=== PATIENT | female | born 1985 | race Caucasian/White ===

== ENCOUNTER 2021-08-20 12:38 | Outpatient (REF) | payer OTHER, SELFPAY ==
--- NOTE | ~2021-08-20 | XR_ITS ---
EXAMINATION: XR FOOT, LEFT CLINICAL INFORMATION: Confusion. COMPARISON: None TECHNIQUE: AP, lateral, and oblique views of the left foot. FINDINGS: There is no visible acute fracture, dislocation subluxation. There is mild dorsal midfoot soft tissue swelling. Alignment is anatomic. Joint spaces are maintained. A small retrocalcaneal enthesophyte. XR/XR foot LT min 3V IMPRESSION: Small retrocalcaneal enthesophyte. Otherwise rest of the left foot exam is unremarkable.
== END 2021-08-20 12:39 | disposition home or self-care (01) ==
LOC: HO.HMGCX 12:38
PROVIDERS: PCP Internal Medicine; Visit Provider Internal Medicine
DX: S90.30XA Contusion of unspecified foot, initial encounter (principal); X58.XXXA Exposure to other specified factors, initial encounter; Y93.9 Activity, unspecified; Y92.9 Unspecified place or not applicable; Y99.9 Unspecified external cause status
CPT/HCPCS: 73630

== ENCOUNTER 2022-01-17 10:18 | Outpatient (REF) | payer OTHER, SELFPAY ==
[2022-01-17 11:23] LABS: MANUAL DIFF FLAG NO
[2022-01-17 11:52] LABS: Alanine Aminotransferase 19 U/L (0-31); Albumin Level 3.7 g/dL (3.5-5.0); Alkaline Phosphatase 87 U/L (39-117); Anion Gap 13 (12-20); Aspartate Amino Transferase 15 U/L (5-31); Bilirubin Total 0.6 mg/dL (0.0-1.0); Blood Urea Nitrogen 11 mg/dL (9-16); Calcium 9.2 mg/dL (8.4-10.2); Carbon Dioxide 22 mmol/L (22-29); Chloride 106 mmol/L (96-108); Cholesterol 160 mg/dL; Estimated Glomerular Filt Rate > 60; Glucose Fasting 112 mg/dL (60-99); HDL Cholesterol 49 mg/dL; LDL Cholesterol Calculated 95 mg/dl; Potassium 4.3 mmol/L (3.3-5.1); Sodium 137 mmol/L (135-145); Triglycerides 82 mg/dL
[2022-01-17 11:54] LABS: Basophils Absolute Auto 0.1 X10*3/uL (0.0-0.2); Eosinophils Absolute Auto 0.1 X10*3/uL (0.0-0.4); Eosinophils Percent Auto 1.5 % (0-4); Hematocrit 34.4 % (37.0-47.0); Hemoglobin 10.2 g/dl (12.0-16.0); Imm Gran Abs Auto 0.02 X10*3/uL (0.00-0.03); Imm Gran Pct Auto 0.3 % (0.0-0.4); Lymphocytes Absolute Auto 2.1 X10*3/uL (1.2-4.9); Lymphocytes Percent Auto 28.8 % (20-40); Mean Corpuscular HGB Conc 29.7 g/dl (31.0-35.0); Mean Corpuscular Hemoglobin 22.3 pg (27.0-33.0); Mean Corpuscular Volume 75.1 fL (80.0-98.0); Mean Platelet Volume 11.5 fL (9.4-12.3); Monocytes Absolute Auto 0.5 X10*3/uL (0.1-1.2); Monocytes Percent Auto 7.2 % (2-11); Neutrophils Absolute Auto 4.4 x10*3/uL (2.0-8.3); Neutrophils Percent Auto 61.2 % (45-73); Platelet Count 383 X10*3/uL (160-400); Red Blood Count 4.58 X10*6/uL (4.20-5.50); Red Cell Distribution Width 16.9 % (11.0-16.0); White Blood Count 7.1 X10*3/uL (4.8-10.8)
[2022-01-17 12:14] LABS: TSH reflex Free T4 4.02 uIU/mL (0.32-4.0)
[2022-01-17 13:08] LABS: Free T4 (Free Thyroxine) 1.01 ng/dL (0.71-1.85)
== END 2022-01-17 10:19 | disposition home or self-care (01) ==
LOC: HO.HMGCLDS 10:18
PROVIDERS: Visit Provider Internal Medicine
DX: Z00.01 Encounter for general adult medical examination with abnormal findings (principal); E66.01 Morbid (severe) obesity due to excess calories; F99 Mental disorder, not otherwise specified; G25.2 Other specified forms of tremor; K21.9 Gastro-esophageal reflux disease without esophagitis; R00.0 Tachycardia, unspecified
CPT/HCPCS: 36415; 80053; 80061; 84439; 84443; 85025

== ENCOUNTER 2022-01-21 12:53 | Outpatient (REF) | payer OTHER, SELFPAY ==
[2022-01-21 13:45] LABS: MANUAL DIFF FLAG NO
[2022-01-21 13:54] LABS: Basophils Absolute Auto 0.1 X10*3/uL (0.0-0.2); Basophils Percent Auto 0.8 % (0-2); Eosinophils Absolute Auto 0.1 X10*3/uL (0.0-0.4); Eosinophils Percent Auto 1.4 % (0-4); Hematocrit 35.4 % (37.0-47.0); Hemoglobin 10.5 g/dl (12.0-16.0); Imm Gran Abs Auto 0.02 X10*3/uL (0.00-0.03); Imm Gran Pct Auto 0.3 % (0.0-0.4); Lymphocytes Absolute Auto 1.9 X10*3/uL (1.2-4.9); Lymphocytes Percent Auto 26.4 % (20-40); Mean Corpuscular HGB Conc 29.7 g/dl (31.0-35.0); Mean Corpuscular Hemoglobin 22.2 pg (27.0-33.0); Monocytes Absolute Auto 0.5 X10*3/uL (0.1-1.2); Monocytes Percent Auto 7.2 % (2-11); Neutrophils Absolute Auto 4.6 x10*3/uL (2.0-8.3); Neutrophils Percent Auto 63.9 % (45-73); Platelet Count 388 X10*3/uL (160-400); Red Blood Count 4.72 X10*6/uL (4.20-5.50); Red Cell Distribution Width 16.8 % (11.0-16.0); White Blood Count 7.2 X10*3/uL (4.8-10.8)
[2022-01-21 14:25] LABS: Ferritin 13 ng/mL (10-122)
[2022-01-21 14:41] LABS: Vitamin B12 332 pg/mL (200-900)
== END 2022-01-21 12:54 | disposition home or self-care (01) ==
LOC: HO.HMGCLDS 12:53
PROVIDERS: PCP Internal Medicine; Visit Provider Internal Medicine
DX: D64.9 Anemia, unspecified (principal)
CPT/HCPCS: 36415; 82607; 82728; 85025

== ENCOUNTER 2022-08-22 10:42 | Outpatient (REF) | payer OTHER, SELFPAY ==
[2022-08-22 11:34] LABS: Hematocrit 36.2 % (37.0-47.0); Hemoglobin 10.6 g/dl (12.0-16.0)
[2022-08-22 11:44] LABS: Estimated Average Glucose 103 mg/dL; Hemoglobin A1c % 5.2 %
== END 2022-08-22 10:43 | disposition home or self-care (01) ==
LOC: HO.HMGCLDS 10:42
PROVIDERS: PCP Internal Medicine; Visit Provider Internal Medicine
DX: R79.89 Other specified abnormal findings of blood chemistry (principal); K21.9 Gastro-esophageal reflux disease without esophagitis; E66.01 Morbid (severe) obesity due to excess calories; F99 Mental disorder, not otherwise specified; D64.9 Anemia, unspecified; R73.01 Impaired fasting glucose
CPT/HCPCS: 36415; 83036; 84443; 85014; 85018

== ENCOUNTER 2022-10-24 08:57 | Outpatient (REF) | payer OTHER, SELFPAY ==
[2022-10-24 11:18] LABS: MANUAL DIFF FLAG NO
[2022-10-24 11:43] LABS: Basophils Absolute Auto 0.1 X10*3/uL (0.0-0.2); Basophils Percent Auto 1.2 % (0-2); Eosinophils Absolute Auto 0.1 X10*3/uL (0.0-0.4); Eosinophils Percent Auto 1.6 % (0-4); Hematocrit 33.4 % (37.0-47.0); Hemoglobin 9.5 g/dl (12.0-16.0); Imm Gran Abs Auto 0.01 X10*3/uL (0.00-0.03); Imm Gran Pct Auto 0.2 % (0.0-0.4); Lymphocytes Absolute Auto 2.6 X10*3/uL (1.2-4.9); Lymphocytes Percent Auto 44.9 % (20-40); Mean Corpuscular HGB Conc 28.4 g/dl (31.0-35.0); Mean Corpuscular Hemoglobin 21.2 pg (27.0-33.0); Mean Corpuscular Volume 74.6 fL (80.0-98.0); Monocytes Absolute Auto 0.5 X10*3/uL (0.1-1.2); Monocytes Percent Auto 7.8 % (2-11); Neutrophils Absolute Auto 2.5 x10*3/uL (2.0-8.3); Neutrophils Percent Auto 44.3 % (45-73); Platelet Count 387 X10*3/uL (160-400); Red Blood Count 4.48 X10*6/uL (4.20-5.50); White Blood Count 5.7 X10*3/uL (4.8-10.8)
[2022-10-24 12:05] LABS: Estimated Average Glucose 94 mg/dL; Hemoglobin A1c % 4.9 %
[2022-10-24 12:20] LABS: Alanine Aminotransferase 14 U/L (0-31); Albumin Level 3.5 g/dL (3.5-5.0); Alkaline Phosphatase 73 U/L (39-117); Anion Gap 11 (12-20); Aspartate Amino Transferase 13 U/L (5-31); Bilirubin Total 0.4 mg/dL (0.0-1.0); Blood Urea Nitrogen 9 mg/dL (9-16); Calcium 8.7 mg/dL (8.4-10.2); Carbon Dioxide 25 mmol/L (22-29); Chloride 106 mmol/L (96-108); Cholesterol 152 mg/dL; Estimated Glomerular Filt Rate > 60; Glucose Fasting 118 mg/dL (60-99); HDL Cholesterol 49 mg/dL; Iron 26 mcg/dL (30-160); LDL Cholesterol Calculated 87 mg/dl; Percent Iron Saturation 7 % (15-50); Potassium 4.1 mmol/L (3.3-5.1); Sodium 138 mmol/L (135-145); Total Iron Binding Capacity 359 mcg/dL (228-428); Total Protein 6.2 g/dL (6.5-8.0); Triglycerides 83 mg/dL; Unsaturated Iron Binding 333 ug/dL
[2022-10-24 12:28] LABS: Ferritin 6 ng/mL (10-122); TSH reflex Free T4 4.21 uIU/mL (0.32-4.0); Vitamin B12 422 pg/mL (200-900)
[2022-10-24 13:26] LABS: Free T4 (Free Thyroxine) 0.87 ng/dL (0.71-1.85)
[2022-10-28 16:24] LABS: Vitamin D 25-OH, D2 <4 ng/mL; Vitamin D 25-OH, D3 20 ng/mL; Vitamin D 25-OH, Total 20 ng/mL (30-100)
== END 2022-10-24 08:58 | disposition home or self-care (01) ==
LOC: HO.HMGCLDS 08:57
PROVIDERS: PCP Internal Medicine; Visit Provider Internal Medicine
DX: Z00.01 Encounter for general adult medical examination with abnormal findings (principal); D64.9 Anemia, unspecified; E66.01 Morbid (severe) obesity due to excess calories; F99 Mental disorder, not otherwise specified; G25.2 Other specified forms of tremor; K21.9 Gastro-esophageal reflux disease without esophagitis; R73.01 Impaired fasting glucose; R79.89 Other specified abnormal findings of blood chemistry; Z91.09 Other allergy status, other than to drugs and biological substances
CPT/HCPCS: 36415; 80053; 80061; 82306; 82607; 82728; 83036; 83540; 84439; 84443; 85025

== ENCOUNTER → 2022-11-09 14:11 | Outpatient (BNV) | payer OTHER, SELFPAY | PROVIDERS: PCP Internal Medicine; Visit Provider Internal Medicine | DX: D64.9 Anemia, unspecified (principal) | CPT/HCPCS: 99204; 99213 ==

== ENCOUNTER 2023-04-03 09:49 | Outpatient (REF) | payer OTHER, SELFPAY | END 2023-04-03 09:50 | disposition home or self-care (01) | LOC: HO.10HDL 09:49 | PROVIDERS: Visit Provider Internal Medicine | DX: Z13.89 Encounter for screening for other disorder (principal) | CPT/HCPCS: 36415 ==

== ENCOUNTER 2023-09-25 10:15 | Outpatient (REF) | payer OTHER, SELFPAY | END 2023-09-25 10:16 | disposition home or self-care (01) | LOC: HO.HMGCLDS 10:15 | PROVIDERS: PCP Internal Medicine; Visit Provider Internal Medicine | DX: D64.9 Anemia, unspecified (principal) | CPT/HCPCS: 36415; 85014; 85018 ==

== ENCOUNTER 2024-04-17 12:33 | Outpatient (AMB) | payer OTHER, SELFPAY ==
[2024-04-17 12:37] VITALS: BP 122/84; PULSE 102; O2SAT 97; BMI 43.9
--- NOTE | 2024-04-17 12:37 | A.OFFPC_ITS ---
Vital Signs 04/17/24 12:37 Height 5 ft 7 in Weight 280 lb 4 oz BMI 43.9 BP 122/84 Blood Pressure Location Rt brachial Position Sitting Pulse 102 H Pulse Source Pulse Oximeter Pulse Oximetry (%) 97 Oxygen Delivery Method Room Air Intake Visit Reasons: annual visit Allergies pollen extracts [POLLEN] Allergy (Unknown, Verified 04/17/24 12:39) UNKNOWN Benadryl Adverse Reaction (Unknown, Uncoded 12/11/23 11:41) sensitivity ROSES Adverse Reaction (Unknown, Uncoded 12/11/23 11:41) UNKNOWN Medication List - Last Reviewed 04/17/24 by Catracho Hubbard MA bupropion HCl XL 300 mg PO BEDTIME ferrous sulfate 325 mg PO DAILY fluoxetine 60 mg PO QAM levothyroxine 25 mcg PO DAILY 90 days loratadine 10 mg PO DAILY 90 days omeprazole 40 mg PO DAILY 90 days prazosin 5 mg PO BEDTIME Tobacco use date assessed: 04/17/24 Dental Screening Dental Screen Date: 04/17/24 Did you have a dental visit in the last 12 months?: Yes Did you have a dental problem in the last 6 months where you did not have access to dental care?: No Was dental information given to patient?: Patient has dentist HPI annual visit HPI Details Patient is 38-year-old female came in today for annual physical examination Declined to have Pap smear or to see OBGYN Declined breast exam today Patient is seeing psychiatrist , psychiatric medications through them Chronic GERD stable with omeprazole Patient also have chronic anemia but stable, due for labs Patient is also taking loratadine for chronic allergies Patient is prediabetic we are monitoring hemoglobin A1c Chronic tachycardia and fine tremor of hand ? Labs to be done today Follow-up 1 year physical exam [facility] Surgical History [place] teeth extracted Family History Other Mental health disorder Social History Household Members: None Housing: Apartment Patient Tobacco Use Status: Never used Tobacco e-Cigarette/Vaping Use: Never Used Second Hand Smoke Exposure: No service: No Current occupational status: unemployed Cognitive needs: No Hearing needs: No Vision needs: Yes Questionnaire PHQ-9 Over the last 2 weeks, how often have you been bothered by any of the following problems? 1. Little interest or pleasure in doing things: not at all 2. Feeling down, depressed, or hopeless: not at all 3. Trouble falling or staying asleep, or sleeping too much: several days 4. Feeling tired or having little energy: several days 5. Poor appetite or overeating: not at all 6. Feeling bad about yourself - or that you are a failure or have let yourself or your family down: not at all 7. Trouble concentrating on things, such as reading the newspaper or watching television: not at all 8. Moving or speaking so slowly that other people could have noticed. Or the opposite - being so fidgety or restless that you have been moving around a lot more than usual: not at all 9. Thoughts that you would be better off or of hurting yourself in some way: not at all Total score: 2 Depression Screening Interpretation: Negative Depression Screening Done: Yes 12847 - PHQ-9 Billing: Yes Source: Developed by Drs. Obed Saeed, Sonya Moore, Barrera Schwarz and colleagues, with an educational bronson from [employer]. Thrive Questionnaire Date Thrive assessed: 04/17/24 I am a: Parent/Caregiver What is your living situation today?: I have a steady place to live Within the past 12 months, did the food you bought not last and you didn't have the money to get more?: Never true Within the past 12 months, did you worry whether your food would run out before you got money to buy more?: I choose not to answer this question Do you have trouble paying for medicines?: I choose not to answer this question Do you have trouble getting transportation to medical appointments?: I choose not to answer this question Do you have trouble paying your heating and electricity bill?: I choose not to answer this question Do you have trouble taking care of your child, family member or friend?: I choose not to answer this question Do you have trouble with day-to-day activities such as bathing, preparing meals, shopping, managing finances, etc.?: No Are you currently unemployed and looking for a job?: No Are you interested in more education?: No Please select the resources that you would like help with: Housing/Care Home Currently or been in a relationship where the following occur: I choose not to answer THRIVE Score: 0 AUDIT C Alcohol Use Questionnaire (AUDIT-C) 1. How often do you have a drink containing alcohol?: Never 3. How often do you have six or more drinks on one occasion?: Never Total Score: 0 Score Reviewed/Action Taken: Yes MARII-7 AMB Questionnaire MARII-7 Date MARII - 7 assessed: 04/17/24 Feeling nervous, anxious, or on edge: 0 = Not at all Not being able to stop or control worryin = Not at all Worrying too much about different things: 0 = Not at all Trouble relaxin = Not at all Being so restless that it is hard to sit still: 0 = Not at all Becoming easily annoyed or irritable: 0 = Not at all Feeling afraid as if something awful might happen: 0 = Not at all Total MARII-7 score (0-4 normal; 5-9 mild; 10-14 moderate; 15-21 severe): 0 Source: Developed by Drs. Obed Saeed, Sonya Moore, Barrera Schwarz and colleagues, with an educational bronson from [employer]. MARII-7 Assessment Billing MARII-7 Assessment Tool: MARII-7 Assessment 47089 Review of Systems Const Denies chills, Denies fever(s) and Denies headache(s) Eyes Denies blurry vision ENT Denies headache(s), Denies nasal discharge, Denies nasal obstruction, Denies odynophagia and Denies sinus pain Card Denies chest pain at rest and Denies chest pain with activity Resp Denies cough and Denies hemoptysis GI Denies diarrhea, Denies odynophagia, Denies vomiting and Denies hematemesis Reports as per HPI Musc Denies abnormal gait Skin/Breast Reports as per HPI Neuro Denies Abnormal speech present, Denies abnormal gait, Denies headache(s) and Denies Sensory deficit (Neuro) Endo Reports as per HPI Raul/Lymph Reports as per HPI Aller/Immun Reports as per HPI Physical exam (Primary Care) Vital Signs: Last Vital Signs Pulse 102 H 04/17/24 12:37 BP 122/84 04/17/24 12:37 Pulse Ox 97 04/17/24 12:37 Oxygen Delivery Method Room Air 04/17/24 12:37 BMI result Body Mass Index 43.9 Tobacco/Smoking Status: Tobacco use Status Tobacco use date assessed 04/17/24 04/17/24 12:40 Patient Tobacco Use Status Never used Tobacco 04/17/24 12:40 e-Cigarette/Vaping Use Never Used 04/17/24 12:40 PHQ-9: PHQ-9 Score PHQ-9: Total score 2 04/17/24 12:40 Depression Screening Interpretation: Negative Thrive Assessment: Date of Thrive Assessment Date Thrive assessed 04/17/24 04/17/24 12:40 Currently or been in a relationship where the following occur: I choose not to answer Const General: cooperative, comfortable and no acute distress Orientation/consciousness: patient oriented x3 HENMT Head: Yes normocephalic and Yes atraumatic Eyes General: appearance normal, both eyes and all related structures Pupils: Equal, round and reactive pupils present EOM: EOMs intact bilaterally Neck Neck: Yes supple and No lymphadenopathy Thyroid: Thyroid normal Lymphatic: no lymphadenopathy noted Resp Effort & Inspection: normal respiratory effort and able to speak in complete sentences Auscultation: clear to auscultation bilaterally Cardio Heart sounds: S1 normal heart sound present and S2 normal heart sound present GI Palpation (GI): Soft to palpation and nontender Auscultation: normal bowel sounds General: Yes no CVA tenderness Back/Spine/Pelvis Back: no CVA tenderness Skin General skin exam: elasticity normal and turgor normal Neuro General: patient oriented x3 and gait normal Cranial nerves: Yes Equal, round and reactive pupils present Speech: No Abnormal speech present Sensory Exam: No Sensory deficit (Neuro) Extrem General: Yes normal exam except as noted and No edema Assessment and Plan Assessment & Plan (1) Encounter for general adult medical examination with abnormal findings: Code(s): Z00.01 - Encounter for general adult medical examination with abnormal findings (2) Morbid obesity due to excess calories: Code(s): E66.01 - Morbid (severe) obesity due to excess calories (3) Chronic GERD: Code(s): K21.9 - Gastro-esophageal reflux disease without esophagitis (4) Psychiatric illness: Code(s): F99 - Mental disorder, not otherwise specified (5) Anemia: Code(s): D64.9 - Anemia, unspecified Qualifiers: Anemia type: other cause Other causes of anemia: chronic disease, other Qualified Code(s): D63.8 - Anemia in other chronic diseases classified elsewhere (6) Impaired fasting blood sugar: Code(s): R73.01 - Impaired fasting glucose (7) Elevated TSH: Code(s): R79.89 - Other specified abnormal findings of blood chemistry (8) Fine tremor: Code(s): G25.2 - Other specified forms of tremor (9) Environmental allergies: Code(s): Z91.09 - Other allergy status, other than to drugs and biological substances (10) Papanicolaou smear declined: Code(s): Z53.20 - Procedure and treatment not carried out because of patient's decision for unspecified reasons Plan Patient is 38-year-old female came in today for annual physical examination Declined to have Pap smear or to see OBGYN Declined breast exam today Patient is seeing psychiatrist , psychiatric medications through them Chronic GERD stable with omeprazole Patient also have chronic anemia but stable, due for labs Patient is also taking loratadine for chronic allergies Patient is prediabetic we are monitoring hemoglobin A1c Chronic tachycardia and fine tremor of hand ? Labs to be done today Follow-up 1 year physical exam Orders: Orders Complete Blood Count Auto Diff Today D64.9 - Anemia, unspecified, E66.01 - Morbid (severe) obesity due to excess calories, F99 - Mental disorder, not otherwise specified, K21.9 - Gastro-esophageal reflux disease without esophagitis, R73.01 - Impaired fasting glucose, R79.89 - Other specified abnormal findings of blood chemistry, Z00.01 - Encounter for general adult medical examination with abnormal findings Comprehensive Met. Panel Today D64.9 - Anemia, unspecified, E66.01 - Morbid (severe) obesity due to excess calories, F99 - Mental disorder, not otherwise specified, K21.9 - Gastro-esophageal reflux disease without esophagitis, R73.01 - Impaired fasting glucose, R79.89 - Other specified abnormal findings of blood chemistry, Z00.01 - Encounter for general adult medical examination with abnormal findings LDL Cholesterol Direct Today D64.9 - Anemia, unspecified, E66.01 - Morbid (severe) obesity due to excess calories, F99 - Mental disorder, not otherwise specified, K21.9 - Gastro-esophageal reflux disease without esophagitis, R73.01 - Impaired fasting glucose, R79.89 - Other specified abnormal findings of blood chemistry, Z00.01 - Encounter for general adult medical examination with abnormal findings TSH reflex Free T4 Today D64.9 - Anemia, unspecified, E66.01 - Morbid (severe) obesity due to excess calories, F99 - Mental disorder, not otherwise specified, K21.9 - Gastro-esophageal reflux disease without esophagitis, R73.01 - Impaired fasting glucose, R79.89 - Other specified abnormal findings of blood chemistry, Z00.01 - Encounter for general adult medical examination with abnormal findings Ferritin Today D64.9 - Anemia, unspecified, E66.01 - Morbid (severe) obesity due to excess calories, F99 - Mental disorder, not otherwise specified, K21.9 - Gastro-esophageal reflux disease without esophagitis, R73.01 - Impaired fasting glucose, R79.89 - Other specified abnormal findings of blood chemistry, Z00.01 - Encounter for general adult medical examination with abnormal findings Hemoglobin A1c Today R73.01 - Impaired fasting glucose Coding Level of Care Code Est Pt Level 3 (40644) Est Pt Prev Care 18-39y(12247) Diagnoses Encounter for general adult medical examination with abnormal findings Z00.01 Morbid obesity due to excess calories E66.01 Chronic GERD K21.9 Psychiatric illness F99 Anemia in other chronic diseases classified elsewhere D63.8 Anemia type: other cause Other causes of anemia: chronic disease, other Impaired fasting blood sugar R73.01 Elevated TSH R79.89 Fine tremor G25.2 Environmental allergies Z91.09 Papanicolaou smear declined Z53.20 Additional Codes MARII-7 Assessment Billing - MARII-7 Assessment Tool: MARII-7 Assessment [id number] ([id number])
== END 2024-04-17 12:51 | disposition home or self-care (01) ==
PROVIDERS: PCP Internal Medicine; Visit Provider Internal Medicine
DX: Z00.00 Encounter for general adult medical examination without abnormal findings (principal); E66.01 Morbid (severe) obesity due to excess calories; Z68.41 Body mass index [BMI] 40.0-44.9, adult; K21.9 Gastro-esophageal reflux disease without esophagitis; F99 Mental disorder, not otherwise specified; D63.8 Anemia in other chronic diseases classified elsewhere; R73.01 Impaired fasting glucose; R79.89 Other specified abnormal findings of blood chemistry; G25.2 Other specified forms of tremor; Z91.09 Other allergy status, other than to drugs and biological substances; Z53.20 Procedure and treatment not carried out because of patient's decision for unspecified reasons
CPT/HCPCS: 99395

== ENCOUNTER 2024-04-19 12:04 | Outpatient (REF) | payer OTHER, SELFPAY ==
[2024-04-19 13:17] LABS: MANUAL DIFF FLAG NO
[2024-04-19 13:21] LABS: Basophils Absolute Auto 0.1 X10*3/uL (0.0-0.2); Basophils Percent Auto 1.1 % (0-2); Eosinophils Absolute Auto 0.1 X10*3/uL (0.0-0.4); Eosinophils Percent Auto 1.5 % (0-4); Hematocrit 43.9 % (37.0-47.0); Hemoglobin 13.9 g/dl (12.0-16.0); Imm Gran Abs Auto 0.01 X10*3/uL (0.00-0.03); Imm Gran Pct Auto 0.2 % (0.0-0.4); Lymphocytes Absolute Auto 2.7 X10*3/uL (1.2-4.9); Lymphocytes Percent Auto 41.3 % (20-40); Mean Corpuscular HGB Conc 31.7 g/dl (31.0-35.0); Mean Corpuscular Hemoglobin 27.7 pg (27.0-33.0); Mean Corpuscular Volume 87.5 fL (80.0-98.0); Mean Platelet Volume 12.8 fL (9.4-12.3); Monocytes Absolute Auto 0.5 X10*3/uL (0.1-1.2); Monocytes Percent Auto 7.6 % (2-11); Neutrophils Absolute Auto 3.2 x10*3/uL (2.0-8.3); Neutrophils Percent Auto 48.3 % (45-73); Platelet Count 271 X10*3/uL (160-400); Red Blood Count 5.02 X10*6/uL (4.20-5.50); Red Cell Distribution Width 13.4 % (11.0-16.0); White Blood Count 6.6 X10*3/uL (4.8-10.8)
[2024-04-19 13:29] LABS: Estimated Average Glucose 97 mg/dL
[2024-04-19 14:28] LABS: Alanine Aminotransferase 20 U/L (0-31); Albumin Level 3.7 g/dL (3.5-5.0); Alkaline Phosphatase 87 U/L (39-117); Anion Gap 12 (12-20); Aspartate Amino Transferase 14 U/L (5-31); Bilirubin Total 0.4 mg/dL (0.0-1.0); Blood Urea Nitrogen 7 mg/dL (9-16); Calcium 9.5 mg/dL (8.4-10.2); Carbon Dioxide 27 mmol/L (22-29); Chloride 104 mmol/L (96-108); Estimated Glomerular Filt Rate > 60; Glucose Random 107 mg/dL (60-115); Sodium 139 mmol/L (135-145); Total Protein 7.1 g/dL (6.5-8.0)
[2024-04-19 14:50] LABS: Ferritin 93 ng/mL (10-122); TSH reflex Free T4 2.97 uIU/mL (0.32-4.0)
[2024-04-20 12:49] LABS: LDL Cholesterol Direct 101 mg/dL (<100)
== END 2024-04-19 12:05 | disposition home or self-care (01) ==
LOC: HO.HMGCLDS 12:04
PROVIDERS: PCP Internal Medicine; Visit Provider Internal Medicine
DX: Z00.01 Encounter for general adult medical examination with abnormal findings (principal); E66.01 Morbid (severe) obesity due to excess calories; K21.9 Gastro-esophageal reflux disease without esophagitis; F99 Mental disorder, not otherwise specified; D64.9 Anemia, unspecified; R73.01 Impaired fasting glucose; R79.89 Other specified abnormal findings of blood chemistry
CPT/HCPCS: 36415; 80053; 82728; 83036; 83721; 84443; 85025

== ENCOUNTER 2024-06-28 10:54 | Outpatient (REF) | payer OTHER, SELFPAY ==
[2024-07-01 18:43] LABS: TS Negative Control Passed; TS Panel A 0; TS Panel B 0; TS Positive Control Passed; TSpotTB Negative (Negative)
== END 2024-06-28 10:55 | disposition home or self-care (01) ==
LOC: HO.HMGCLDS 10:54
PROVIDERS: PCP Internal Medicine; Visit Provider Internal Medicine
DX: Z11.1 Encounter for screening for respiratory tuberculosis (principal)
CPT/HCPCS: 36415; 86481

== ENCOUNTER 2025-05-07 12:35 | Outpatient (AMB) | payer OTHER, SELFPAY ==
[2025-05-07 12:38] VITALS: BP 118/78; PULSE 101; O2SAT 95; BMI 46.8
--- NOTE | 2025-05-07 12:38 | A.OFFPC_ITS ---
Vital Signs 05/07/25 12:38 Height 5 ft 7 in Weight 299 lb BMI 46.8 BP 118/78 Blood Pressure Location Lt brachial Position Sitting Pulse 101 H Pulse Source Pulse Oximeter Pulse Oximetry (%) 95 Oxygen Delivery Method Room Air Intake Visit Reasons: annual exam Time Clock Inspector Required: No Accompanied by: Self / Same As Patient Allergies pollen extracts (POLLEN) Allergy (Unknown, Verified 05/07/25 12:38) UNKNOWN Benadryl Adverse Reaction (Unknown, Uncoded 12/11/23 11:41) sensitivity ROSES Adverse Reaction (Unknown, Uncoded 12/11/23 11:41) UNKNOWN Medication List - Last Reconciled 05/07/25 by Renzo Love MD bupropion HCl XL 300 mg PO BEDTIME ferrous sulfate 325 mg PO DAILY fluoxetine 60 mg PO QAM levothyroxine 25 mcg PO DAILY 90 days loratadine 10 mg PO DAILY 90 days omeprazole 40 mg PO DAILY 90 days prazosin 5 mg PO BEDTIME Tobacco use date assessed: 05/07/25 Dental Screening Dental Screen Date: 05/07/25 Did you have a dental visit in the last 12 months?: Yes Did you have a dental problem in the last 6 months where you did not have access to dental care?: No Was dental information given to patient?: Patient has dentist HPI annual exam HPI Details History of Present Illness The patient is a 39-year-old female presenting for a wellness and preventative physical examination. Major Depressive Disorder, Anxiety Disorder, and Post-Traumatic Stress Disorder: - Current psychiatric treatment in place with Wellbutrin and prevoxetine. - Patient is under psychiatric care for management and medication prescription. Hypothyroidism: - Current medication includes levothyrox ine 25 mcg. - Medication recall issue for current br and of Levoxyl , planning to replace with Synthroid. Anemia secondary to Menorrhagia: - Treatment includes an iron supplement to address anemia related to heavy menses. Allergies - Current management with loratadine 10 mg. Gastroesophageal Reflux Disease (GERD): - Patient is on omeprazole 40 mg for sym ptom management. Obesity, Morbid: - BMI recorded at 46.8, indicating morbi d obesity. - Patient reports difficulty in losing w eight and has slightly reduced weight from 302 lbs to 299 lbs since November. Preventative screening: - Declined VOCATIONAL REHABILITATION ADMINISTRATOR visit. - Due for scheduling a mammogram for [place] cancer screening. Medical History: - Major Depressive Disorder - Anxiety Disorder - Post-Traumatic Stress Disorder - Hypothyroidism - Anemia secondary to Menorrhagia - Allergic Rhinitis - Gastroesophageal Reflux Disease (GERD) - Obesity, Morbid Social History: - Declines VOCATIONAL REHABILITATION ADMINISTRATOR visits. - Desired ear cleaning although no wax i s present. Health Maintenance - Last tetanus vaccine received in 2017. - Needs fasting blood work for lab evalu ation. - Screening mammogram ordered for breast cancer as the patient is now 39 years old. [place] [facility] - Psychiatric care managed by Janki vizcaino. - Hematology follow-up with Dr. Zambrano. - Eye care by Dr. Wilburn - Dental check-up referenced. Medications - Wellbutrin 300 mg for psychiatric illn ess - Prevoxetine 60 mg for psychiatric illn ess - Prazosin 5 mg for psychiatric illness - Iron supplement for anemia due to heav y menses - Levothyroxine 25 mcg for hypothyroidis m - Loratadine 10 mg for allergy - Omeprazole 40 mg for GERD Patient Instructions - Schedule a fasting blood test next wee k before breakfast. - Attend the scheduled mammogram for [place] cancer screening. - Continue current medications unless in structed. - planned switch to Synthroid. - follow up in six months for thyroid a ssessment and annual physical exam. Review of Systems - General: No fever no chills - Neurological: No headaches no dizzin ess - Ear nose throat: No sore throat no hearing difficulty no ear pain - Cardiovascular: No syncope, no chest pain, no palpitations - Gastrointestinal: No nausea vomiting or diarrhea - Endocrine: No polyuria polydipsia no heat intolerance - Genitourinary: No dysuria - Skin: No new complaints Physical Exam General: Cooperative, healthy appearing, comfortable, no acute distress Orientation: Patient oriented x3 Head: Normal to inspection Ears: Within normal limit visually, no wax Nose: Normal external nose present Face and sinus: Normal facial exam Eyes: Appearance normal, extraocular movement intact pupils reactive Neck: Normal visual inspection and supple Respiratory: Normal respiratory effort and able to speak in complete sentences. Clear to auscultation, no stridor Cardiovascular: S1 and S2 RRR, no swelling of ankles GI: Normal to inspection. Soft to palpation and nontender, no nausea, vomiting, diarrhea Breast exam declined Skin: Turgor normal, no acute findings, no rashes or skin problems Neuro: Patient oriented x3, motor sensory intact, balance intact, tandem pass, sense of gravity not good today Extremities: Normal to inspection [facility] Surgical History [place] teeth extracted Family History Other Mental health disorder Social History Household Members: None Housing: Apartment Patient Tobacco Use Status: Never used Tobacco e-Cigarette/Vaping Use: Never Used Second Hand Smoke Exposure: No service: No Current occupational status: unemployed Cognitive needs: No Hearing needs: No Vision needs: Yes Questionnaire PHQ-9 Over the last 2 weeks, how often have you been bothered by any of the following problems? 1. Little interest or pleasure in doing things: not at all 2. Feeling down, depressed, or hopeless: not at all 3. Trouble falling or staying asleep, or sleeping too much: not at all 4. Feeling tired or having little energy: not at all 5. Poor appetite or overeating: not at all 6. Feeling bad about yourself - or that you are a failure or have let yourself or your family down: not at all 7. Trouble concentrating on things, such as reading the newspaper or watching television: not at all 8. Moving or speaking so slowly that other people could have noticed. Or the opposite - being so fidgety or restless that you have been moving around a lot more than usual: not at all 9. Thoughts that you would be better off or of hurting yourself in some way: not at all Total score: 0 Depression Screening Interpretation: Negative Depression Screening Done: Yes 12809 - PHQ-9 Billing: Yes Source: Developed by Drs. Obed Saeed, Sonya Moore, Barrera Schwarz and colleagues, with an educational bronson from [employer]. Thrive Questionnaire Date Thrive assessed: 05/07/25 I am a: Patient What is your living situation today?: I choose not to answer this question Within the past 12 months, did the food you bought not last and you didn't have the money to get more?: I choose not to answer this question Within the past 12 months, did you worry whether your food would run out before you got money to buy more?: I choose not to answer this question Do you have trouble paying for medicines?: I choose not to answer this question Do you have trouble getting transportation to medical appointments?: I choose not to answer this question Do you have trouble paying your heating and electricity bill?: I choose not to answer this question Do you have trouble taking care of your child, family member or friend?: I choose not to answer this question Do you have trouble with day-to-day activities such as bathing, preparing meals, shopping, managing finances, etc.?: I choose not to answer this question Are you currently unemployed and looking for a job?: I choose not to answer this question Are you interested in more education?: I choose not to answer this question Please select the resources that you would like help with: Paying for medicine and None Currently or been in a relationship where the following occur: I choose not to answer THRIVE Score: 0 AUDIT C Alcohol Use Questionnaire (AUDIT-C) 1. How often do you have a drink containing alcohol?: Never 3. How often do you have six or more drinks on one occasion?: Never Total Score: 0 Score Reviewed/Action Taken: Yes MARII-7 AMB Questionnaire MARII-7 Date MARII - 7 assessed: 05/07/25 Feeling nervous, anxious, or on edge: 0 = Not at all Not being able to stop or control worryin = Not at all Worrying too much about different things: 0 = Not at all Trouble relaxin = Not at all Being so restless that it is hard to sit still: 0 = Not at all Becoming easily annoyed or irritable: 0 = Not at all Feeling afraid as if something awful might happen: 0 = Not at all Total MARII-7 score (0-4 normal; 5-9 mild; 10-14 moderate; 15-21 severe): 0 Source: Developed by Drs. Obed Saeed, Sonya Moore, Barrera Schwarz and colleagues, with an educational bronson from [employer]. MARII-7 Assessment Billing MARII-7 Assessment Tool: MARII-7 Assessment 23843 Physical exam (Primary Care) Vital Signs: Last Vital Signs Pulse 101 H 05/07/25 12:38 BP 118/78 05/07/25 12:38 Pulse Ox 95 05/07/25 12:38 Oxygen Delivery Method Room Air 05/07/25 12:38 BMI result Body Mass Index 46.8 Tobacco/Smoking Status: Tobacco use Status Tobacco use date assessed 05/07/25 05/07/25 12:39 Patient Tobacco Use Status Never used Tobacco 05/07/25 12:39 e-Cigarette/Vaping Use Never Used 05/07/25 12:39 PHQ-9: PHQ-9 Score PHQ-9: Total score 0 05/07/25 12:39 Depression Screening Interpretation: Negative Thrive Assessment: Date of Thrive Assessment Date Thrive assessed 05/07/25 05/07/25 12:39 Currently or been in a relationship where the following occur: I choose not to answer Coding Level of Care Code Tele Est Pt Level 3 (93037) Est Pt Prev Care 40-64y(14394) Diagnoses Encounter for general adult medical examination with abnormal findings Z00.01 Environmental allergies Z91.09 Psychiatric illness F99 Impaired fasting blood sugar R73.01 Morbid obesity due to excess calories E66.01 Chronic GERD K21.9 Menorrhagia with regular cycle N92.0 Menorrhagia type: with regular cycle Anemia in other chronic diseases classified elsewhere D63.8 Anemia type: other cause Other causes of anemia: chronic disease, other Additional Codes MARII-7 Assessment Billing - MARII-7 Assessment Tool: MARII-7 Assessment 83718 ([id number]) PHQ-9 - 06320 - PHQ-9 Billing: Yes ([id number]) Assessment & Plan Assessment & Plan (1) Encounter for general adult medical examination with abnormal findings: Code(s): Z00.01 - Encounter for general adult medical examination with abnormal findings Category: Medical (2) Environmental allergies: Code(s): Z91.09 - Other allergy status, other than to drugs and biological substances Category: Medical (3) Psychiatric illness: Code(s): F99 - Mental disorder, not otherwise specified Category: Medical (4) Impaired fasting blood sugar: Code(s): R73.01 - Impaired fasting glucose Category: Medical (5) Morbid obesity due to excess calories: Code(s): E66.01 - Morbid (severe) obesity due to excess calories Category: Medical (6) Chronic GERD: Code(s): K21.9 - Gastro-esophageal reflux disease without esophagitis Category: Medical (7) Heavy menstrual bleeding: Code(s): N92.0 - Excessive and frequent menstruation with regular cycle Category: Medical Qualifiers: Menorrhagia type: with regular cycle Qualified Code(s): N92.0 - Excessive and frequent menstruation with regular cycle (8) Anemia: Code(s): D64.9 - Anemia, unspecified Category: Medical Qualifiers: Anemia type: other cause Other causes of anemia: chronic disease, other Qualified Code(s): D63.8 - Anemia in other chronic diseases classified elsewhere Plan History of Present Illness The patient is a 39-year-old female presenting for a wellness and preventative physical examination. Major Depressive Disorder, Anxiety Disorder, and Post-Traumatic Stress Disorder: - Current psychiatric treatment in place with Wellbutrin and prevoxetine. - Patient is under psychiatric care for management and medication prescription. Hypothyroidism: - Current medication includes levothyroxine 25 mcg. - Medication recall issue for current brand of Levoxyl , planning to replace with Synthroid. Anemia secondary to Menorrhagia: - Treatment includes an iron supplement to address anemia related to heavy menses. Allergies - Current management with loratadine 10 mg. Gastroesophageal Reflux Disease (GERD): - Patient is on omeprazole 40 mg for symptom management. Obesity, Morbid: - BMI recorded at 46.8, indicating morbid obesity. - Patient reports difficulty in losing weight and has slightly reduced weight from 302 lbs to 299 lbs since November. Preventative screening: - Declined VOCATIONAL REHABILITATION ADMINISTRATOR visit. - Due for scheduling a mammogram for breast cancer screening. Medical History: - Major Depressive Disorder - Anxiety Disorder - Post-Traumatic Stress Disorder - Hypothyroidism - Anemia secondary to Menorrhagia - Allergic Rhinitis - Gastroesophageal Reflux Disease (GERD) - Obesity, Morbid Social History: - Declines VOCATIONAL REHABILITATION ADMINISTRATOR visits. - Desired ear cleaning although no wax is present. Health Maintenance - Last tetanus vaccine received in 2017. - Needs fasting blood work for lab evaluation. - Screening mammogram ordered for breast cancer as the patient is now 39 years old. [place] [facility] - Psychiatric care managed by Janki Mercado. - Hematology follow-up with Dr. Zambrano. - Eye care by Dr. Wilburn - Dental check-up referenced. Medications - Wellbutrin 300 mg for psychiatric illness - Prevoxetine 60 mg for psychiatric illness - Prazosin 5 mg for psychiatric illness - Iron supplement for anemia due to heavy menses - Levothyroxine 25 mcg for hypothyroidism - Loratadine 10 mg for allergy - Omeprazole 40 mg for GERD Patient Instructions - Schedule a fasting blood test next week before breakfast. - Attend the scheduled mammogram for breast cancer screening. - Continue current medications unless instructed. - planned switch to Synthroid. - follow up in six months for thyroid assessment and annual physical exam. Orders: Orders TSH reflex Free T4 Today D63.8 - Anemia in other chronic diseases classified elsewhere, E66.01 - Morbid (severe) obesity due to excess calories, F99 - Mental disorder, not otherwise specified, K21.9 - Gastro-esophageal reflux disease without esophagitis, N92.0 - Excessive and frequent menstruation with regular cycle, R73.01 - Impaired fasting glucose, Z00.01 - Encounter for general adult medical examination with abnormal findings, Z91.09 - Other allergy status, other than to drugs and biological substances Hematocrit Today D63.8 - Anemia in other chronic diseases classified elsewhere, E66.01 - Morbid (severe) obesity due to excess calories, F99 - Mental disorder, not otherwise specified, K21.9 - Gastro-esophageal reflux disease without esophagitis, N92.0 - Excessive and frequent menstruation with regular cycle, R73.01 - Impaired fasting glucose, Z00.01 - Encounter for general adult medical examination with abnormal findings, Z91.09 - Other allergy status, other than to drugs and biological substances MM tomosynthesis screening BI Today Z12.31 - Encounter for screening mammogram for malignant neoplasm of breast Comprehensive [place]. Panel Fast Today D63.8 - Anemia in other chronic diseases classified elsewhere, E66.01 - Morbid (severe) obesity due to excess calories, F99 - Mental disorder, not otherwise specified, K21.9 - Gastro-esophageal reflux disease without esophagitis, N92.0 - Excessive and frequent menstruation with regular cycle, R73.01 - Impaired fasting glucose, Z00.01 - Encounter for general adult medical examination with abnormal findings, Z91.09 - Other allergy status, other than to drugs and biological substances Lipid Panel Today D63.8 - Anemia in other chronic diseases classified elsewhere, E66.01 - Morbid (severe) obesity due to excess calories, F99 - Mental disorder, not otherwise specified, K21.9 - Gastro-esophageal reflux disease without esophagitis, N92.0 - Excessive and frequent menstruation with regular cycle, R73.01 - Impaired fasting glucose, Z00.01 - Encounter for general adult medical examination with abnormal findings, Z91.09 - Other allergy status, other than to drugs and biological substances Hemoglobin Today D63.8 - Anemia in other chronic diseases classified elsewhere, E66.01 - Morbid (severe) obesity due to excess calories, F99 - Mental disorder, not otherwise specified, K21.9 - Gastro-esophageal reflux disease without esophagitis, N92.0 - Excessive and frequent menstruation with regular cycle, R73.01 - Impaired fasting glucose, Z00.01 - Encounter for general adult medical examination with abnormal findings, Z91.09 - Other allergy status, other than to drugs and biological substances Ferritin Today D63.8 - Anemia in other chronic diseases classified elsewhere, E66.01 - Morbid (severe) obesity due to excess calories, F99 - Mental disorder, not otherwise specified, K21.9 - Gastro-esophageal reflux disease without esophagitis, N92.0 - Excessive and frequent menstruation with regular cycle, R73.01 - Impaired fasting glucose, Z00.01 - Encounter for general adult medical examination with abnormal findings, Z91.09 - Other allergy status, other than to drugs and biological substances Medications: New levothyroxine (Synthroid) 25 mcg PO DAILY 90 tabs 0RF Discontinued levothyroxine Discontinued Reason: Doctor's Order 25 mcg PO DAILY 90 days 90 tabs 0RF
== END 2025-05-07 13:01 | disposition home or self-care (01) ==
LOC: HO.HMCC 12:35
PROVIDERS: PCP Internal Medicine; Visit Provider Internal Medicine
DX: Z00.01 Encounter for general adult medical examination with abnormal findings (principal); R73.01 Impaired fasting glucose; E66.01 Morbid (severe) obesity due to excess calories; Z68.42 Body mass index [BMI] 45.0-49.9, adult; Z91.09 Other allergy status, other than to drugs and biological substances; F99 Mental disorder, not otherwise specified; K21.9 Gastro-esophageal reflux disease without esophagitis; N92.0 Excessive and frequent menstruation with regular cycle; D63.8 Anemia in other chronic diseases classified elsewhere

== ENCOUNTER → 2025-05-07 12:35 | Outpatient (BNVA) | payer OTHER, SELFPAY | PROVIDERS: PCP Internal Medicine; Visit Provider Internal Medicine | DX: Z00.00 Encounter for general adult medical examination without abnormal findings (principal); F32.9 Major depressive disorder, single episode, unspecified; F43.10 Post-traumatic stress disorder, unspecified; E03.9 Hypothyroidism, unspecified; K21.9 Gastro-esophageal reflux disease without esophagitis; E66.01 Morbid (severe) obesity due to excess calories; N92.0 Excessive and frequent menstruation with regular cycle; D50.0 Iron deficiency anemia secondary to blood loss (chronic); Z68.42 Body mass index [BMI] 45.0-49.9, adult | CPT/HCPCS: 96127; 99396 ==

== ENCOUNTER 2025-05-12 10:01 | Outpatient (REF) | payer OTHER, SELFPAY ==
[2025-05-12 13:42] LABS: Hematocrit 40.4 % (37.0-47.0); Hemoglobin 13.0 g/dl (12.0-16.0)
[2025-05-12 14:14] LABS: Alanine Aminotransferase 22 U/L (0-31); Albumin Level 3.9 g/dL (3.5-5.0); Alkaline Phosphatase 87 U/L (39-117); Anion Gap 13 (12-20); Aspartate Amino Transferase 25 U/L (5-31); Blood Urea Nitrogen 15 mg/dL (9-16); Calcium 9.0 mg/dL (8.4-10.2); Carbon Dioxide 25 mmol/L (22-29); Chloride 103 mmol/L (96-108); Cholesterol 163 mg/dL (<200); Estimated Glomerular Filt Rate > 60; Ferritin 89 ng/mL (10-250); HDL Cholesterol 53 mg/dL (>40); Potassium 3.8 mmol/L (3.3-5.1); Sodium 137 mmol/L (135-145); Total Protein 7.0 g/dL (6.5-8.0); Triglycerides 92 mg/dL (<150)
== END 2025-05-12 10:02 | disposition home or self-care (01) ==
LOC: HO.HMGCLDS 10:01
PROVIDERS: PCP Internal Medicine; Visit Provider Internal Medicine
DX: Z00.01 Encounter for general adult medical examination with abnormal findings (principal); F99 Mental disorder, not otherwise specified; R73.01 Impaired fasting glucose; E66.01 Morbid (severe) obesity due to excess calories; K21.9 Gastro-esophageal reflux disease without esophagitis; N92.0 Excessive and frequent menstruation with regular cycle; D63.8 Anemia in other chronic diseases classified elsewhere; Z91.09 Other allergy status, other than to drugs and biological substances
CPT/HCPCS: 36415; 80053; 80061; 82728; 84443; 85014; 85018

== ENCOUNTER 2025-06-25 14:29 | Outpatient (REF) | payer OTHER, SELFPAY | END 2025-06-25 14:30 | disposition home or self-care (01) | LOC: HO.MAMMO 14:29 | PROVIDERS: PCP Internal Medicine; Visit Provider Internal Medicine | DX: Z12.31 Encounter for screening mammogram for malignant neoplasm of breast (principal) | CPT/HCPCS: 77063; 77067 ==

== ENCOUNTER → 2025-06-25 14:30 | Outpatient (BNV) | payer OTHER, SELFPAY | PROVIDERS: PCP Internal Medicine; Visit Provider Internal Medicine | DX: Z12.31 Encounter for screening mammogram for malignant neoplasm of breast (principal) | CPT/HCPCS: 77063; 77067 ==